=== PATIENT | male | born 1985 | race Caucasian/White ===

== ENCOUNTER 2024-10-18 15:01 | Inpatient (IN) | payer MEDICAID, OTHER ==
[~2024-10-18] VITALS: Ht 172.7 cm; Wt 81.6 kg
[~2024-10-18 15:01] MED LIST: AMAN-24 PO; BUPR-50 PO; BUSP10TA23 PO; CHOL25TA4 PO; DOCU-412 PO; FAMO20 PO; FLUT16SP NASAL; FOLI-130 PO; GABA-1201 PO; HALO5TAB23 PO; HYDR50CA7 PO; LORA10TA7 PO; LOXA25CA13 PO; METF-446 PO; MULT-1203 PO; NALT50TA33 PO; OMEG100033 PO; PALI6TAB15 PO; PRAZ2 PO; SENN-376 PO; SERT-162 PO; TOPI-258 PO
[2024-10-18] MEDS ORDERED: NICO-703 TD (19:37)
[2024-10-18] MEDS ORDERED: PANT-31 PO (19:38)
[2024-10-18] MEDS ORDERED: ACET-2247 PO (19:41)
[2024-10-18] MEDS ORDERED: ZOLP-280 PO (19:42)
[2024-10-18] MEDS ORDERED: BISA-72 PO (19:46)
[2024-10-18 21:25] VITALS: BP 115/66; PULSE 86; RESP 18; TEMP 98.6; O2SAT 99
[2024-10-18] MEDS ORDERED: PETROLATUM,WHITE 28 GM JELLY TP PRN (22:30)
[2024-10-18] MEDS ORDERED: ACETAMINOPHEN 325 MG TABLET PO PRN (22:30)
[2024-10-18] MEDS ORDERED: MAG HYDROX/ALUMINUM HYD/SIMETH ES 30 ML SUSPENSION UDCUP PO PRN (22:30)
[2024-10-18] MEDS ORDERED: ALBUTEROL SULFATE HFA 90 MCG/PUFF 8 GM INHALER IH PRN (22:30)
[2024-10-18] MEDS ORDERED: OMEPRAZOLE 20 MG CAPSULE PO PRN (22:30)
[2024-10-18] MEDS ORDERED: BENZOCAINE/MENTHOL [CEPACOL] LOZENGE PO PRN (22:30)
[2024-10-18] MEDS ORDERED: ONDANSETRON 4 MG TABLET PO PRN (22:30)
[2024-10-18] MEDS ORDERED: MAGNESIUM HYDROXIDE SUSPENSION 30 ML UDCUP PO PRN (22:30)
[2024-10-18] MEDS ORDERED: IBUPROFEN 600 MG TABLET PO PRN (22:30)
[2024-10-18] MEDS ORDERED: DOCUSATE SODIUM 100 MG CAPSULE PO PRN (22:30)
[2024-10-18] MEDS ORDERED: LOPERAMIDE HCL 2 MG CAPSULE PO PRN (22:30)
[2024-10-18] MEDS ORDERED: BACITRACIN 28 GM OINTMENT TP PRN (22:30)
[2024-10-19 08:11] VITALS: BP 98/60; PULSE 62; RESP 17; TEMP 97.5; O2SAT 98
[2024-10-19] MEDS: POTASSIUM CHLORIDE 20 MEQ ER TABLET PO ONE (08:38)
[2024-10-19 09:30] LABS: PLATELET COUNT (AUTO) 202 K/uL (150-450); RED BLOOD CELL COUNT(AUTO) 4.29 MIL/uL (4.50-5.90); RED CELL DISTRIBUTION WIDTH 13.1 % (11.5-14.5); WHITE BLOOD COUNT (AUTO) 5.0 K/uL (4.5-11.0)
[2024-10-19 09:51] LABS: ASPARTATE AMINOTRANSFERASE 11 U/L (15-37); CALCIUM, TOTAL 9.4 mg/dL (8.8-10.5); CHOL/HDL RATIO 2.5 (4.2-7.3); CREATININE 0.88 mg/dL (0.60-1.30); GLOMERULAR FILTR. RATE CALC > 60 mL/min (>60); GLUCOSE,RANDOM 98 mg/dL (70-110); LDL CHOL (CALC.) 51 mg/dL (0-130); SODIUM SERUM 143 mmol/L (136-145); TOTAL PROTEIN, SERUM 6.9 g/dL (6.4-8.2); UREA NITROGEN, BLOOD 11 mg/dL (7-18)
[2024-10-19] MEDS ORDERED: NICOTINE POLACRILEX 2 MG LOZENGE PO PRN (12:00)
[2024-10-19] MEDS: GABAPENTIN 400 MG CAPSULE PO SCH (12:41)
[2024-10-19] MEDS: DIVALPROEX SODIUM 500 MG ER TABLET PO SCH (17:00)
[2024-10-19 20:09] VITALS: RESP 17
[2024-10-19 20:31] VITALS: BP 108/61; PULSE 80; RESP 16; TEMP 98.4; O2SAT 97
[2024-10-19] MEDS: ZOLPIDEM TARTRATE 10 MG TABLET PO PRN (20:36)
[2024-10-19] MEDS: PRAZOSIN HCL 2 MG CAPSULE PO SCH (20:36)
[2024-10-20] MEDS: PALIPERIDONE 6 MG ER TABLET PO SCH (08:17)
[2024-10-20] MEDS: SERTRALINE HCL 100 MG TABLET PO SCH (08:17)
[2024-10-20 08:25] VITALS: BP 95/61; PULSE 92; RESP 18; TEMP 97.8; O2SAT 98
[2024-10-20 20:00] VITALS: BP 105/62; PULSE 85; RESP 16; TEMP 97.6; O2SAT 98
[2024-10-21 08:23] VITALS: BP 125/111; PULSE 97; RESP 19; TEMP 97.6; O2SAT 98
[2024-10-21 20:05] VITALS: BP 120/55; PULSE 85; RESP 16; TEMP 98.1; O2SAT 97
[2024-10-21 20:58] VITALS: BP 127/72; RESP 18; O2SAT 99
[2024-10-22 08:15] VITALS: BP 124/62; PULSE 92; RESP 18; TEMP 97.7; O2SAT 99
[2024-10-22 20:37] VITALS: BP 125/62; PULSE 95; RESP 16; TEMP 97.5; O2SAT 99
[2024-10-23 08:37] VITALS: BP 100/70; PULSE 88; RESP 16; TEMP 99; O2SAT 98
[2024-10-23 20:52] VITALS: BP 125/93; PULSE 86; RESP 18; TEMP 97.7; O2SAT 100
[2024-10-24 08:30] VITALS: RESP 18
[2024-10-24] MEDS ORDERED: OLAN5TAB94 PO (13:09)
== END 2024-10-24 16:17 | DRG 750 ==
LOC: B3A 18:25
PROVIDERS: ADMIT Psychiatry & Neurology Psychiatry; ATTEND Psychiatry & Neurology Psychiatry
DX: F25.1 Schizoaffective disorder, depressive type (principal); R45.851 Suicidal ideations; F10.90 Alcohol use, unspecified, uncomplicated; F43.10 Post-traumatic stress disorder, unspecified; F41.9 Anxiety disorder, unspecified; R73.03 Prediabetes; K21.9 Gastro-esophageal reflux disease without esophagitis; Y90.9 Presence of alcohol in blood, level not specified; G47.00 Insomnia, unspecified; K59.00 Constipation, unspecified; Z79.899 Other long term (current) drug therapy; Z72.0 Tobacco use; Z88.0 Allergy status to penicillin; Z91.51 Personal history of suicidal behavior; Z88.8 Allergy status to other drugs, medicaments and biological substances
CPT/HCPCS: 80053; 80061; 83036; 84132; 84436; 84439; 85025; 87081; 87340